=== PATIENT | female | born 1955 | race Caucasian/White ===

== ENCOUNTER 2016-10-08 16:16 | Emergency (ER) | payer OTHER ==
--- NOTE | 2016-10-08 16:40 | ER Document Report ---
ED Respiratory Problem - General Mode of Arrival: Medic Information source: Patient, Relative - HPI Patient complains to provider of: Short of breath Similar symptoms previously: Yes Recently seen / treated by doctor: Yes <KAUR DAIGLE - Last Filed: 10/08/16 20:30> <NORMA ALVARADO - Last Filed: 10/09/16 00:54> - General Chief Complaint: Shortness Of Breath Stated Complaint: FLANK PAIN Time Seen by Provider: 10/08/16 16:23 Notes: Patient is a 61-year-old female who presents to the emergency department today with complaints of right-sided chest wall pain with associated shortness of breath. Patient states she has had this pain for approximately 2 months however it has been increasing in severity over the last few days. Patient states within the last few weeks she was diagnosed with non-small cell lung cancer. Patient states she had thoracentesis 2 at [facility] during that time as well. and patient state that "she was not getting the care she needed at [facility] or [facility] so she is requesting transfer to [facility]". (KAUR DAIGLE) - Related Data Allergies/Adverse Reactions: No Known Allergies Allergy (Unverified 10/08/16 17:20) Past Medical History - General Information source: Patient, Relative - Social History Smoking Status: Former Smoker Cigarette use (# per day): No Frequency of alcohol use: None Drug Abuse: None Lives with: Spouse/Significant other Family History: Reviewed & Not Pertinent Renal/ Medical History: Reports: Hx Kidney Stones Malignancy Medical History: Reports: Hx Lung Cancer Surgical Hx: Negative <KAUR DAIGLE - Last Filed: 10/08/16 20:30> Review of Systems - Review of Systems Constitutional: No symptoms reported EENT: No symptoms reported Cardiovascular: No symptoms reported Respiratory: See HPI, Short of breath - with associated right sided chest pain Gastrointestinal: No symptoms reported Genitourinary: No symptoms reported Female Genitourinary: No symptoms reported Musculoskeletal: No symptoms reported Skin: No symptoms reported Hematologic/Lymphatic: No symptoms reported Neurological/Psychological: No symptoms reported -: Yes All other systems reviewed and negative <KAUR DAIGLE - Last Filed: 10/08/16 20:30> Physical Exam - Vital signs Interpretation: Hypotensive, Hypoxic - General General appearance: Alert In distress: Mild - in pain - HEENT Head: Normocephalic, Atraumatic Mucous membranes: Dry Neck: Normal - Respiratory Respiratory status: Respiratory distress Chest status: Tender Breath sounds: Rhonchi - R middle and lower lobe Chest palpation: Tender - Right posterior lateral chest tenderness to palpation - Cardiovascular Rhythm: Regular Heart sounds: Normal auscultation Murmur: No - Abdominal Inspection: Normal Distension: No distension Bowel sounds: Normal Tenderness: Nontender Organomegaly: No organomegaly - Back Back: Normal - Extremities General upper extremity: Normal inspection, Normal ROM General lower extremity: Normal inspection, Normal ROM - Psychological Associated symptoms: Normal affect, Normal mood <NORMA ALVARADO - Last Filed: 10/09/16 00:54> - Vital signs Vitals: Temp 97.6 F 10/08/16 16:36 Course - Laboratory Result Diagrams: 10/08/16 16:31 10/08/16 16:31 - Consults [facility] Time consulted: 18:39 <KAUR DAIGLE - Last Filed: 10/08/16 20:30> - Laboratory Result Diagrams: 10/08/16 16:31 10/08/16 16:31 <NORMA ALVARADO - Last Filed: 10/09/16 00:54> - Re-evaluation Re-evalutation: 10/08/16 18:35 Spoke to [facility] transfer center - paging oncology, will call back (KAUR DAIGLE) 10/08/16 21:26 Patient is a 61-year-old female who has a recent diagnosis of non-small cell lung cancer with pleural effusion. Patient had been seen at [facility]. Patient had CTA which did not show any pleural effusion. Patient comes in for pain, difficulty breathing. Patient is not doing well at home. Patient is supposed to be seeing oncology at [facility]. Patient is hypotensive and also has a urinary tract infection today. She has been given cefepime for that. Patient has been discussed with the transfer center at [facility] and will be transferred there for further evaluation of her lung cancer and symptoms. Patient did have some slight hypotension. She was given fluids and responded well to that. She has not been tachycardic. Patient has been getting possible doses of fentanyl to control her pain. Urine and blood cultures have been sent. Stable at time of transfer by ground. (NORMA ALVARADO) - Vital Signs Vital signs: Temp Pulse Resp BP Pulse Ox 97.4 F 15 120/73 92 10/08/16 21:41 10/08/16 21:03 10/08/16 21:03 10/08/16 21:03 - Laboratory Laboratory results interpreted by me: 10/08/16 10/08/16 10/08/16 16:31 16:31 16:31 Hgb 11.0 L Hct 34.3 L MCH 26.7 L MCHC 31.9 L RDW 14.6 H Monocytes % 14.9 H Eosinophils % 6.5 H Sodium 136.5 L Alkaline Phosphatase Creatine Kinase 25 L Total Protein Albumin Urine Blood Ur Leukocyte Esterase 10/08/16 10/08/16 16:31 17:55 Hgb Hct MCH MCHC RDW Monocytes % Eosinophils % Sodium Alkaline Phosphatase 134 H Creatine Kinase Total Protein 6.0 L Albumin 2.9 L Urine Blood SMALL H Ur Leukocyte Esterase LARGE H - Consults [facility] Reason for consultation: 10/08/16 19:23 Dr. Raygoza - [facility] oncology called back, will talk to attending and call back. 10/08/16 20:15 Call returned from [facility] - recommending ER to ER transfer 10/08/16 20:[address] Murray [facility] ED attending, accepts ER to ER transfer. (KAUR DAIGLE) Critical Care Note - Critical Care Note Total time excluding time spent on procedures (mins): 60 - Evaluation and management of difficulty breathing, multiple re-evaluations, management of pain related to cancer, coordination of transfer, counseling patient, treatment of infection <NORMA ALVARADO - Last Filed: 10/09/16 00:54> Discharge <KAUR DAIGLE - Last Filed: 10/08/16 20:30> <NORMA ALVARADO - Last Filed: 10/09/16 00:54> - Discharge Clinical Impression: Pleural effusion Malignant neoplasm of lung Qualifiers: Laterality: right Lung location: middle lobe of lung Qualified Code(s): C34.2 - Malignant neoplasm of middle lobe, bronchus or lung Urinary tract infection Qualifiers: Urinary tract infection type: site unspecified Hematuria presence: with hematuria Qualified Code(s): N39.0 - Urinary tract infection, site not specified ; R31.9 - Hematuria, unspecified Condition: Stable Disposition: [facility] Scribe Attestation: 10/09/16 00:54 I personally performed the services described in the documentation, reviewed and edited the documentation which was dictated to the scribe in my presence, and it accurately records my words and actions. (NORMA ALVARADO) Scribe Documentation - Scribe Written by Hale:: Sindhu Luciano, 10/08/2016 acting as scribe for :: Prashanth <KAUR DAIGLE - Last Filed: 10/08/16 20:30>
[2016-10-08 16:46] LABS: ABSOLUTE BASOPHILS # (AUTO) 0.1 10^3/uL (0.0-0.2); ABSOLUTE EOSINOPHILS # (AUTO) 0.4 10^3/uL (0.0-0.6); ABSOLUTE LYMPHOCYTES (AUTO) 0.9 10^3/uL (0.5-4.7); ABSOLUTE MONOCYTES (AUTO) 0.9 10^3/uL (0.1-1.4); ABSOLUTE NEUT (AUTO) 3.9 10^3/uL (1.7-8.2); BASOPHILS % (AUTO) 0.9 % (0-2); EOSINOPHILS % (AUTO) 6.5 % (0-6); HEMATOCRIT 34.3 % (36.0-47.0); HGB HCT DIFFERENCE -1.3; LYMPHOCYTES % (AUTO) 14.9 % (13-45); MEAN CORPUSCULAR HEMOGLOBIN 26.7 pg (27.0-33.4); MEAN CORPUSCULAR HGB CONC 31.9 g/dL (32.0-36.0); MEAN CORPUSCULAR VOLUME 84 fl (80-97); MONOCYTES % (AUTO) 14.9 % (3-13); RED CELL DISTRIBUTION WIDTH 14.6 % (11.5-14.0); SEGMENTED NEUTROPHILS % (AUTO) 62.8 % (42-78); WHITE BLOOD COUNT 6.3 10^3/uL (4.0-10.5)
[2016-10-08 16:55] LABS: PROTHROMBIN TIME 13.6 SEC (11.4-15.4)
[2016-10-08 16:56] LABS: PARTIAL THROMBOPLASTIN TIME 31.3 SEC (23.5-35.8)
[2016-10-08 17:03] LABS: ANION GAP 7 (5-19); BLOOD UREA NITROGEN 12 mg/dL (7-20); CALCIUM 9.2 mg/dL (8.4-10.2); CARBON DIOXIDE 30 mmol/L (22-30); CHLORIDE 100 mmol/L (98-107); CREATININE RESULT 0.52 mg/dL (0.52-1.25); GLUCOSE 89 mg/dL (75-110); POTASSIUM 4.3 mmol/L (3.6-5.0); SODIUM 136.5 mmol/L (137-145)
[2016-10-08 17:11] LABS: VENOUS BLOOD BASE EXCESS 5.3 mmol/L; VENOUS BLOOD HCO3 30.6 mmol/L (20-32); VENOUS BLOOD PCO2 48.3 mmHg (35-63); VENOUS BLOOD PH 7.42 (7.30-7.42)
[2016-10-08 17:16] LABS: CREATINE KINASE MB < 0.22 ng/mL (<4.55); TROPONIN I < 0.012 ng/mL
[2016-10-08] MEDS ORDERED: FENTANYL CITRATE INJ/PF 100 MCG/2 ML AMPUL IV ONE ×3 (17:19→18:50)
--- NOTE | 2016-10-08 17:21 | RADIOLOGY REPORT (SQ) ---
EXAM DESCRIPTION: CHEST SINGLE VIEW COMPLETED DATE/TIME: 10/08/2016 5:13 pm REASON FOR STUDY: sob COMPARISON: None. EXAM PARAMETERS: NUMBER OF VIEWS: One view. TECHNIQUE: Single frontal radiographic view of the chest acquired. RADIATION DOSE: NA LIMITATIONS: None. FINDINGS: LUNGS AND PLEURA: Multifocal airspace disease isolated to the right lung with moderate-siz ed pleural effusion. Left lung and pleural space are grossly clear. MEDIASTINUM AND HILAR STRUCTURES: No masses. Contour normal. HEART AND VASCULAR STRUCTURES: Heart normal in size. Normal vasculature. BONES: No acute findings. HARDWARE: None in the chest. OTHER: No other significant finding. IMPRESSION: RIGHT-SIDED AIRSPACE DISEASE WITH PLEURAL EFFUSION ABOVE PRESUMABLY REPRESENTS PNEUMO POLINA WITH PARAPNEUMONIC EFFUSION. CORRELATE WITH FEVER/ ELEVATED WHITE BLOOD CELL COUNT AND FOLLOWUP CHEST RADIOGRAPHS IN 4 TO 6 WEEKS TO ENSURE RESOLUTION. TECHNICAL DOCUMENTATION: JOB ID: [id number]
[2016-10-08 17:36] LABS: ALANINE AMINOTRANSFERASE 22 U/L (9-52); ALBUMIN 2.9 g/dL (3.5-5.0); ALKALINE PHOSPHATASE 134 U/L (38-126); ASPARTATE AMINO TRANSFERASE 20 U/L (14-36); BILIRUBIN,DIRECT 0.4 mg/dL (0.0-0.4); BILIRUBIN,TOTAL 0.5 mg/dL (0.2-1.3)
[2016-10-08 18:17] LABS: APPEARANCE,URINE SLIGHTLY-CLOUDY; BILIRUBIN,URINE NEGATIVE (NEGATIVE); GLUCOSE, URINE NEGATIVE (NEGATIVE); KETONES,URINE NEGATIVE (NEGATIVE); LEUKOCYTE ESTERASE,URINE LARGE (NEGATIVE); NITRITE,URINE NEGATIVE (NEGATIVE); PROTEIN,URINE NEGATIVE (NEGATIVE); URINE SPECIFIC GRAVITY 1.008; UROBILINOGEN,URINE NEGATIVE mg/dL (<2.0)
[2016-10-08] MEDS ORDERED: NORMAL SALINE 1000 ML 500 ML IV ONE (18:48)
[2016-10-08] MEDS ORDERED: CEFEPIME 1 GM/D5W RTU 50 ML IV ONE (18:49)
[2016-10-08] MEDS ORDERED: LIDOCAINE 5% (700 MG) TRANSDERMAL ADH..PATCH TP ONE (18:50)
[2016-10-08 21:21] VITALS: BP 120/73
== END 2016-10-08 21:45 | disposition short-term general hospital (02) ==
LOC: ER 16:16
DX: C34.2 Malignant neoplasm of middle lobe, bronchus or lung (principal); J90 Pleural effusion, not elsewhere classified; N39.0 Urinary tract infection, site not specified; R06.02 Shortness of breath; R07.89 Other chest pain; Z87.891 Personal history of nicotine dependence; Z87.442 Personal history of urinary calculi
CPT/HCPCS: 96376; 99291; 96375; 96365; 36415; 87086; 82553; 82550; 85025; 85610; 85730; 87088; 80076; 80048; 81001; 84484; 82803; 83605; 83880; 71010; J3010; J0692